=== PATIENT | male | born 1970 | race Caucasian/White ===

== ENCOUNTER 2020-01-04 11:40 | Inpatient (IN) | payer BC ==
[~2020-01-04] VITALS: Ht 165.1 cm; Wt 79.4 kg
[2020-01-04 12:12] VITALS: BP_SYST 109
[2020-01-04 13:12] LABS: HEMATOCRIT 41.5 % (36-54); HEMOGLOBIN 13.8 g/dL (14.0-18.0); MEAN CORPUSCULAR HEMOGLOBIN 34 pg (27-31); MEAN CORPUSCULAR HGB CONC 33 % (32-36); MEAN CORPUSCULAR VOLUME 102 fL (79.0-98.0); PLATELET COUNT (AUTO) 85 K/uL (130-430); RED BLOOD CELL COUNT(AUTO) 4.07 MIL/uL (4.2-6.2); RED CELL DISTRIBUTION WIDTH 18.6 % (9.0-15.0); WHITE BLOOD COUNT (AUTO) 5.3 K/uL (4.8-10.8)
[2020-01-04 13:34] LABS: CREATININE 0.93 mg/dL (0.55-1.30); POTASSIUM 3.9 mmol/L (3.5-5.1)
[2020-01-04 13:35] LABS: ATYPICAL LYMPHOCYTES % 0 % (0-0); BAND % (MANUAL) 3 % (0-6); BASOPHILS % (MANUAL) 0 % (0-2); EOSINOPHILS % (MANUAL) 0 % (0-7); LYMPHOCYTES % (MANUAL) 19 % (20-46); MONOCYTES % (MANUAL) 2 % (0-11)
[2020-01-04 13:40] LABS: ALBUMIN 3.3 g/dL (3.4-4.8); TOTAL BILIRUBIN 2.8 mg/dL (0.0-1.0)
--- NOTE | 2020-01-04 15:45 | NUR ---
Patient to ER bed 6 to gown for evaluation. Side rails up.
[2020-01-04] MEDS ORDERED: NACL 0.9% 1,000 ML IV ONE (15:54)
--- NOTE | 2020-01-04 15:55 | NUR ---
ER at bedside examining patient.
--- NOTE | 2020-01-04 15:56 | NUR ---
Patient presented to ER C/O vomiting. Patient A&Ox4, skin pink and warm, afebrile, ambulatory to ER, nausea & vomiting present, patient denies diarrhea, pain 5/10. Patient states he has flank pain and abdominal pain, Patient states he completed ABX for kidney infectiona and has pending gallbladder Sx. Patient states he also has "alcohol withdrawl" last drinl 0800 today.
[2020-01-04] MEDS ORDERED: ONDANSETRON HCL 4 MG/2 ML VIAL IVP ONE (16:00)
[2020-01-04] MEDS ORDERED: MORPHINE 2 MG/ML INJ. SYRINGE IVP ONE (16:00)
[2020-01-04] MEDS ORDERED: FOLIC ACID 1 MG, THIAMINE HCL 100 MG, MAGNESIUM SULFATE 1 GM, MVI 10 ML in NACL 0.9% 1,... IV ONE (16:00)
[2020-01-04] MEDS ORDERED: LORazepam 2 MG/ML VIAL IVP ONE (16:00)
[2020-01-04 16:23] LABS: AMYLASE 90 U/L (0-100); LIPASE 1007 U/L (73-393)
[2020-01-04 16:27] LABS: INR 1.2 (0.80-1.20); PROTHROMBIN TIME 11.6 SECS (9.5-12.5)
[2020-01-04] MEDS ORDERED: MAGNESIUM SULFATE IV ONE (16:35)
[2020-01-04] MEDS ORDERED: FOLIC ACID IV ONE (16:35)
[2020-01-04] MEDS ORDERED: NACL 0.9% IV ONE (16:35)
[2020-01-04] MEDS ORDERED: FOLIC ACID 1 MG, MVI 10 ML in NACL 0.9% 1,000 ML IV ONE (16:44)
[2020-01-04] MEDS ORDERED: MAGNESIUM SULFATE 1 GM, THIAMINE HCL 100 MG in NS 100 ML IV ONE (16:45)
[2020-01-04 17:34] LABS: BILIRUBIN,URINE 2+ (NEGATIVE); CLARITY/URINE CLEAR (CLEAR); COLOR,URINE YELLOW (YELLOW); GLUCOSE,URINE NEGATIVE (NEGATIVE); KETONES,URINE TRACE (NEGATIVE); LEUKOCYTE ESTERASE ,URINE NEGATIVE (NEGATIVE); NITRITE, URINE NEGATIVE (NEGATIVE); PROTEIN URINE 1+ (NEGATIVE)
[2020-01-04 17:48] LABS: BLOOD, URINE TRACE (NEGATIVE)
[2020-01-04 17:56] LABS: RBC,URINE 0-3 /HPF (0-3); WBC,URINE 0-3 /HPF (0-3)
[2020-01-04 17:57] LABS: BACTERIA,URINE FEW /HPF (None Seen)
[2020-01-04 17:58] LABS: MUCUS,URINE 1+ /LPF (None Seen)
--- NOTE | 2020-01-04 18:00 | NUR ---
BED ASSIGNMENT 104A PER STEM SETTER ZENNIE, HOLD PT IN ER
--- NOTE | 2020-01-04 19:17 | NUR ---
Patient will be admitted to care of DR. WINSLOW. Admitted to MEDSURG unit. Will go to room 104A. Belongings list completed. Complete and up to date summary report printed. SBAR report to be given at bedside with opportunity for questions.
[2020-01-04] MEDS ORDERED: ONDANSETRON HCL 4 MG/2 ML VIAL IVP PRN (19:45)
[2020-01-04] MEDS ORDERED: METOCLOPRAMIDE HCL 10 MG/2 ML VIAL IVP PRN (19:45)
[2020-01-04] MEDS ORDERED: MORPHINE 2 MG/ML INJ. SYRINGE IVP PRN (19:45)
[2020-01-04] MEDS ORDERED: MORPHINE 4 MG/ML INJ. SYRINGE IVP PRN (19:45)
--- NOTE | 2020-01-04 19:47 | NUR ---
ADMISSION NOTE Received patient from ER via kevin, received report from JAYJAY Osuna. Patient admitted with diagnosis of Delirium tremens. Patient oriented to hospital routine, call light, toileting and safety; patient verbalized understanding.
[2020-01-04 20:06] VITALS: BP_SYST 138
--- NOTE | 2020-01-04 20:35 | NUR ---
Ultrasound lead slot technician at bedside for ultrasound study
--- NOTE | 2020-01-04 20:40 | NUR ---
Assessment Assessment complete
[2020-01-04] MEDS ORDERED: FLU VACC QS2019-20 36MOS UP/PF 60 MCG/0.5 ML SYRINGE I.M. PRN (20:45)
[2020-01-04] MEDS ORDERED: FLU VACC TS2019(65UP)/MF59C/PF 45 MCG/0.5 ML SYRINGE I.M. PRN (20:45)
--- NOTE | 2020-01-04 22:20 | NUR ---
RN rounds Patient is resting w/ eyes closed. Nonlabored breathing. Call light w/in reach.
[2020-01-04 22:23] LABS: FINE GRANULAR CASTS,URINE 0-10 /LPF (None Seen)
--- NOTE | 2020-01-05 00:07 | NUR ---
RN rounds Patient is resting, presently denies pain. He has no further needs and requested lights off. Call light w/in reach.
[2020-01-05 00:08] VITALS: BP_SYST 135
[2020-01-05] MEDS: LORazepam 2 MG/ML VIAL IVP PRN ×2 (03:09→08:13)
--- NOTE | 2020-01-05 03:12 | NUR ---
Ativan Patient reports he is shaky. Administered Ativan as ordered; edcated on side effects and he verbalized understanding.
--- NOTE | 2020-01-05 05:15 | NUR ---
awake Patient is awake and asking if he can have a drink of water. I reminded him that the doctor ordered no food by mouth. Charge nurse aware.
[2020-01-05 07:05] LABS: INR 1.1 (0.80-1.20); PROTHROMBIN TIME 10.9 SECS (9.5-12.5)
[2020-01-05 07:08] LABS: BASOPHILS % (AUTO) 1.2 % (0.0-2.0); HEMATOCRIT 35.1 % (36-54); HEMOGLOBIN 11.5 g/dL (14.0-18.0); LYMPHOCYTES # (AUTO) 0.9 K/uL (1.0-5.5); LYMPHOCYTES % (AUTO) 21.4 % (20.5-51.5); MEAN CORPUSCULAR HEMOGLOBIN 34 pg (27-31); MEAN CORPUSCULAR HGB CONC 33 % (32-36); MEAN CORPUSCULAR VOLUME 104 fL (79.0-98.0); MONOCYTES # (AUTO) 0.3 K/uL (0.0-1.0); MONOCYTES % (AUTO) 8.4 % (1.7-9.3); NEUTROPHILS # (AUTO) 2.8 K/uL (1.8-7.7); PLATELET COUNT (AUTO) 69 K/uL (130-430); RED BLOOD CELL COUNT(AUTO) 3.38 MIL/uL (4.2-6.2); RED CELL DISTRIBUTION WIDTH 17.5 % (9.0-15.0)
--- NOTE | 2020-01-05 07:30 | NUR ---
closing note Endorsed report to JAYJAY Hernandez. Patient stable
[2020-01-05 08:00] VITALS: BP_SYST 149
[2020-01-05 08:42] LABS: ALBUMIN 2.7 g/dL (3.4-4.8); CALCIUM 7.1 mg/dL (8.4-11.0); CREATININE 0.73 mg/dL (0.55-1.30); POTASSIUM 3.4 mmol/L (3.5-5.1); TOTAL BILIRUBIN 3.6 mg/dL (0.0-1.0)
[2020-01-05] MEDS: NACL IV SCH ×3 (09:19)
[2020-01-05] MEDS: MVI IV SCH ×3 (09:19)
[2020-01-05] MEDS: FOLIC ACID IV SCH ×3 (09:19)
[2020-01-05] MEDS: BANANA IV SCH ×3 (09:19)
[2020-01-05] MEDS: MAGNESIUM SULFATE 1 GM, THIAMINE HCL 100 MG in NS 100 ML IV SCH (09:20)
--- NOTE | 2020-01-05 09:43 | NUR ---
CONSULT GI ABDOMINAL PAIN DR LUIS [phone] DR LIU CATALOG LIBRARY ASSISTANT S/W NAYE EXCHANGE
--- NOTE | 2020-01-05 11:20 | NUR ---
Patient doing well, being taken to radiology for ultrasound. Rowena RO
[2020-01-05 11:37] VITALS: BP_SYST 134
[2020-01-05 15:07] VITALS: BP_SYST 136
[2020-01-05 16:46] VITALS: BP_SYST 149
[2020-01-05] MEDS ORDERED: DIATR MEGLU/DIATRIZ SOD 30 ML SOLUTION PO ONE (17:00)
--- NOTE | 2020-01-05 19:10 | NUR ---
OPENING NOTES Patient is resting, in wheelchair about to go to radiology. IV site patent, dressings c/d/i. Seizure pads in place. Oriented patient to call light and plan of care. Will continue to monitor.
[2020-01-05 19:15] VITALS: BP_SYST 145
[2020-01-05] MEDS ORDERED: IOHEXOL 100 ML IV ONE (19:25)
--- NOTE | 2020-01-05 20:30 | NUR ---
Patient is resting in bed, Jello is provided. Patient has no signs of nausea or pain. Bed alarm refused after patient education provided and patient understanding. Call light within reach, bed alarm off, bed at lowest position. Will continue to monitor.
--- NOTE | 2020-01-06 00:15 | NUR ---
Patient is resting, no signs of distress observed. Seizure pads in place. Will continue to monitor.
[2020-01-06 01:01] VITALS: BP_SYST 153
--- NOTE | 2020-01-06 02:11 | NUR ---
Patient is resting, television on. Patient provided 2 jellos, HOB elevated. no nausea at this time. Will continue to monitor.
--- NOTE | 2020-01-06 04:43 | NUR ---
Patient is resting, no signs of distress observed. will continue to monitor.
--- NOTE | 2020-01-06 07:07 | NUR ---
CLOSING NOTES Patient is resting, no signs of distress observed, no nausea and patient tolerated ice chips and jello well. IVF running, dressings c/d/i. Call light within reach, bed alarm off after patient education and understanding, bed at lowest position. All needs met throughout shift. Will endorse care to oncoming shift.
[2020-01-06 07:34] LABS: CALCIUM 7.9 mg/dL (8.4-11.0); CREATININE 0.75 mg/dL (0.55-1.30); POTASSIUM 3.1 mmol/L (3.5-5.1)
[2020-01-06 07:35] LABS: ALBUMIN 2.7 g/dL (3.4-4.8); BILIRUBIN,DIRECT 2.9 mg/dL (0.0-0.3); TOTAL BILIRUBIN 4.2 mg/dL (0.0-1.0)
[2020-01-06 07:41] LABS: INR 1.1 (0.80-1.20); PROTHROMBIN TIME 10.8 SECS (9.5-12.5)
[2020-01-06 08:02] LABS: EOSINOPHILS % (AUTO) 0.5 % (0.0-4.0); HEMOGLOBIN 10.8 g/dL (14.0-18.0); LYMPHOCYTES # (AUTO) 0.8 K/uL (1.0-5.5); LYMPHOCYTES % (AUTO) 21.4 % (20.5-51.5); MEAN CORPUSCULAR HEMOGLOBIN 35 pg (27-31); MEAN CORPUSCULAR HGB CONC 34 % (32-36); MEAN CORPUSCULAR VOLUME 103 fL (79.0-98.0); MONOCYTES # (AUTO) 0.4 K/uL (0.0-1.0); NEUTROPHILS # (AUTO) 2.6 K/uL (1.8-7.7); NEUTROPHILS % (AUTO) 68.1 % (40.0-70.0); RED BLOOD CELL COUNT(AUTO) 3.12 MIL/uL (4.2-6.2); RED CELL DISTRIBUTION WIDTH 17.1 % (9.0-15.0); WHITE BLOOD COUNT (AUTO) 3.9 K/uL (4.8-10.8)
--- NOTE | 2020-01-06 08:49 | NUR ---
Nutrition Update Alex Scale 17 noted. Pt admitted for delirium tremens. Diet: clear liquid BMI: 29.1 kg/m2 RD to follow per nutrition care standards.
[2020-01-06] MEDS ORDERED: POTASSIUM CHLORIDE 20 MEQ TAB.PRT.SR PO SCH (09:30)
[2020-01-06] MEDS: MAGNESIUM SULFATE 1 GM, THIAMINE HCL 100 MG in NS 100 ML IV SCH (10:32)
[2020-01-06] MEDS: NACL IV SCH ×3 (10:33)
[2020-01-06] MEDS: BANANA IV SCH ×3 (10:33)
[2020-01-06] MEDS: FOLIC ACID IV SCH ×3 (10:33)
[2020-01-06] MEDS: MVI IV SCH ×3 (10:33)
[2020-01-06 11:26] VITALS: BP_SYST 121
[2020-01-06] MEDS: POTASSIUM CHLORIDE 20 MEQ TAB.PRT.SR PO SCH ×2 (11:47→14:00)
[2020-01-06 12:46] LABS: PLATELET COUNT (AUTO) 68 K/uL (130-430)
--- NOTE | 2020-01-06 13:55 | NUR ---
SS NOTES: SALES STOCK ASSOCIATE was referred by nursing to see patient for ETOH/DCPA. SALES STOCK ASSOCIATE met with patient at bedside; pt was cooperative with normal mood/speech and average eye contact. Pt is alert and oriented x4 with appropriate affect. Pt is a 49 y/o male, , who lives at home with his mom and his aunt. Pt is independent with all his ADL's and works part time receptionist in sales. Pt's only source of income is his employer. Pt states he has been drinking since he was 12 years old. Pt's alcohol of choice is vodka, and drinks around 300 ML daily. Pt denies any current drug use but has used drugs 20 years ago. Pt states he has history of detox in the past, last detox was 8-10 months ago at [facility]. Pt states he finished his detox and went to outpt "for a week" and pt stayed sober for a "couple of months" and decided to drink again with no apparent trigger/s. Pt states 3 years ago he also had alcohol treatments at [facility] and was there for 20 days. Pt was at one point connected with AA, but states "it wasn't my thing". Pt states he is depressed, but denies suicidal ideation/attempts. Pt states he sees a therapist 1x/week with Barb Carrizales. Pt states he receives support from his current girlfriend, mom and his sister. Pt states his relationship with his soon to be ex- was strained due to alcohol use. Pt denies any history of DUI or run in with the law. Pt expressed the desire to stop, especially now that he knows there "a lot of things wrong" with him due to his alcohol intake. SALES STOCK ASSOCIATE re-educated pt on the importance of staying sober, and healthy detox. SALES STOCK ASSOCIATE provided pt with outpatient mental health and substance abuse facilities list. No further SW needs identified at this time, but will remain available for continued support and for resources.
[2020-01-06 15:08] VITALS: BP_SYST 119
--- NOTE | 2020-01-06 15:10 | NUR ---
Nutrition Assessment (short note d/t high patient load) A - RD reviewed pertinent nutrition-related info via EMR (physician notes/nursing notes/labs/meds/nursing care trends/care activity). Admission Dx: Delirium tremens Pt also found w/ alcoholic hepatitis, chronic pain, alcohol-induced pancreatitis per physician notes PMH: chronic back pain, alcohol abuse per physician notes Current Diet Order/Nutrition Support: Mechanical soft x0 days Ht: 65"/5'5" Wt: 174#/79 kg IBW: 136#/62 kg %IBW: 127% Adj IBW (obesity): 146#/66 kg UBW: 190#/86 kg %UBW: 92% BMI: 29.1 kg/m2 (overweight) Subjective Info: RD Notification received for unintentional wt loss in the last 3 months (23-33#), eating poorly greater than 1 week because of creased appetite, N/V/D greater than 3 days CROSSTIE INSPECTOR. Pt was seen in room at time of RD visit. wine cellar worker present during RD verbal interview. Pt reported fair appetite -- lunch tray present, appeared less than 75% eaten. Pt attested to VIT C, MVI, super B complex, VIT A, VIT C, niacin, and fish oil supplementation. Pt reported that he lost ~20# within the past months after being sick w/ the flu. Anthropometrics verified. Pt accepted nutrition education when offered -- RD to provide. Please refer to interdisciplinary teaching record for details. ESTIMATED NUTRITIONAL NEEDS CALORIES/DAY: 9798-9492 kcal/day (25-30 kcal/kg Adj IBW for maintenance) PROTEIN/DAY: 53-66 gm/day (0.8-1 gm/kg Adj IBW for maintenance) FLUID/DAY: 1.7-2 L/day (1 ml/kcal/day for maintenance) D - Inadequate nutritional intakes related to possible displacement of wholesome foods as evidenced by pt's Hx of alcohol abuse, and poor appetite CROSSTIE INSPECTOR. I - Recommend regular diet w/ Ensure Enlive BID (ONS provides 700 kcal/day, 40 gm protein/day) M - Monitor appetite and PO intakes w/ goal of pt meeting at least 75% of estimated nutritional needs, labs trending WNL, normal GI function, and skin integrity/wt maintenance E - Moderate risk; RD to F/U within 3-5 days
--- NOTE | 2020-01-06 15:19 | NUR ---
Nutrition F/U * Recommend regular diet w/ Ensure Enlive BID (ONS provides 700 kcal/day, 40 gm protein/day) LP, RD Please refer to Nutrition Assessment for details.
--- NOTE | 2020-01-06 19:30 | NUR ---
CHANGE OF SHIFT; pt. sleeping when received, has not eaten his dinner. no distress noted. call light within reach. will reassess later.
[2020-01-06 20:30] VITALS: BP_SYST 128
--- NOTE | 2020-01-06 20:30 | NUR ---
NOTES: pt. awakened and ate his dinner, no complaints of pain, tolerated diet.. IV (banana bag) infusing via left wrist @ 100 cc/hr, increase rate to 249cc/hr per pharmacy. pt. ambulates to the restroom. VS checked. call light at bedside.
--- NOTE | 2020-01-06 22:00 | NUR ---
NOTES: IVF completed,no IVF alternative ordered. kept IV lock. pt. ambulated to restroom. call light at bedside. pt. needs attended.
--- NOTE | 2020-01-07 | NUR ---
NOTES: pt. still awake, watching tv. no complaints noted.
--- NOTE | 2020-01-07 02:41 | NUR ---
NOTES: pt. sleeping when checked. condition observed.
[2020-01-07 03:30] VITALS: BP_SYST 115
--- NOTE | 2020-01-07 03:33 | NUR ---
NOTES: pt. called, he was nauseated and vomited per charge nurse Obed. checked pt. apparently drank the water in the pitcher, not nauseous anymore, instructed to call if he gets nauseated in the next hour. VS checked.
--- NOTE | 2020-01-07 05:42 | NUR ---
NOTES: pt. sleeping at this time. no further complaints, no nausea nor vomiting.
--- NOTE | 2020-01-07 06:34 | NUR ---
CLOSING NOTES; pt. still asleep, no further complaints, no nausea nor vomiting. IV site intact, IV lock. no abdominal pain. for further care and assist. call light within reach.
[2020-01-07 07:47] VITALS: BP_SYST 131
--- NOTE | 2020-01-07 08:00 | NUR ---
OPENING NOTES, RECEIVED PT IN BED, PT IS AAOX4, DENIES PAIN, PT LAST HAVE N/V AT 3 AM, NO SOB, NO RESP DISTRESS. NO FEVER. IV ACCESS INTACT AND PATENT. CALL LIGHT IN REACH. BED IN LOW POSITION. ENCOURAGED PT TO CALL FOR ASSIST AND PAIN MEDS.
--- NOTE | 2020-01-07 10:30 | NUR ---
pt in bed, sleeping, no s/s of pain. no sob.
[2020-01-07 11:10] VITALS: BP_SYST 116
[2020-01-07 12:10] VITALS: BP_SYST 116
--- NOTE | 2020-01-07 13:00 | NUR ---
PT REFUSED FLU VACCINE.
--- NOTE | 2020-01-07 13:30 | NUR ---
D/C Patient Patient given medication reconciliation form and D/C instructions. Exit Care provided. Patient verbalized understanding. MD discussed with patient the results and treatment provided. Ambulatory with steady gait for discharge to home. Patient in stable condition, ID band removed. IV catheter removed, intact and dressing applied, no active bleeding. No Rx given. Patient educated on pain management. All belongings sent with patient. discussed with pt dc instruction regarding Alholic hepatitis and doctor's recomendation on stopping alcohol intake and joining AA. Pt verbalized understanding. Pt provided with work excuse.
== END 2020-01-07 13:30 | disposition home or self-care (01) | DRG 440 ==
LOC: SED 11:40 → SMU 17:57
PROVIDERS: ADMIT Internal Medicine Hospice and Palliative Medicine; ATTEND Internal Medicine Hospice and Palliative Medicine
DX: K85.90 Acute pancreatitis without necrosis or infection, unspecified (principal); G89.29 Other chronic pain; F10.10 Alcohol abuse, uncomplicated; K70.10 Alcoholic hepatitis without ascites; Z90.49 Acquired absence of other specified parts of digestive tract; Z79.899 Other long term (current) drug therapy
CPT/HCPCS: 36415; 76700-TC; 78226; 80053; 80076; 81000-TC; 82150-TC; 83690-TC; 85007; 85025; 85027; 85610-TC; 85730-TC; 96361; 96365; 96368; 96375; 99285; A9537; J2060; J2270; J2405; J3411; J3475; J3490; J7030; Q9964; Q9967

== ENCOUNTER 2020-03-24 11:08 | Emergency (ER) | payer BC ==
[~2020-03-24] VITALS: Ht 165.1 cm; Wt 81.6 kg
[2020-03-24 11:08] VITALS: BP_SYST 137
[2020-03-24 11:54] LABS: BASOPHILS # (AUTO) 0.1 K/uL (0.0-0.2); BASOPHILS % (AUTO) 1.3 % (0.0-2.0); EOSINOPHILS % (AUTO) 0.3 % (0.0-4.0); HEMATOCRIT 46.2 % (36-54); HEMOGLOBIN 15.6 g/dL (14.0-18.0); LYMPHOCYTES # (AUTO) 2.4 K/uL (1.0-5.5); LYMPHOCYTES % (AUTO) 48.3 % (20.5-51.5); MEAN CORPUSCULAR HEMOGLOBIN 33 pg (27-31); MEAN CORPUSCULAR HGB CONC 34 % (32-36); MEAN CORPUSCULAR VOLUME 97 fL (79.0-98.0); MONOCYTES # (AUTO) 0.6 K/uL (0.0-1.0); MONOCYTES % (AUTO) 11.5 % (1.7-9.3); NEUTROPHILS % (AUTO) 38.6 % (40.0-70.0); PLATELET COUNT (AUTO) 84 K/uL (130-430); RED BLOOD CELL COUNT(AUTO) 4.75 MIL/uL (4.2-6.2); RED CELL DISTRIBUTION WIDTH 13.9 % (9.0-15.0); WHITE BLOOD COUNT (AUTO) 5.1 K/uL (4.8-10.8)
[2020-03-24 12:40] LABS: POTASSIUM 3.6 mmol/L (3.5-5.1)
[2020-03-24 12:41] LABS: ALBUMIN 4.7 g/dL (3.4-4.8); CREATININE 0.8 mg/dL (0.55-1.30)
[2020-03-24 15:56] VITALS: BP_SYST 145
== END 2020-03-24 15:56 | disposition home or self-care (01) ==
LOC: SED 11:08
DX: R07.89 Other chest pain (principal); F10.129 Alcohol abuse with intoxication, unspecified; Y90.8 Blood alcohol level of 240 mg/100 ml or more
CPT/HCPCS: 36415; 71045; 80053; 82550; 83690; 83880; 84484; 85025; 93005; 99285; G0482

== ENCOUNTER 2020-04-04 00:37 | Inpatient (IN) | payer BC, MEDICAID ==
[~2020-04-04] VITALS: Ht 165.1 cm; Wt 84.8 kg
[2020-04-04] VITALS (7 sets, daily range): BP systolic 115–138
[2020-04-04] MEDS ORDERED: PANTOPRAZOLE SODIUM 40 MG/VIAL (PROTONIX) IVP ONE ×2 (01:15→10:15)
[2020-04-04] MEDS ORDERED: ONDANSETRON HCL 4 MG/2 ML VIAL IVP ONE (01:15)
[2020-04-04] MEDS ORDERED: FOLIC ACID 1 MG, THIAMINE HCL 100 MG, MAGNESIUM SULFATE 1 GM, MVI 10 ML in NACL 0.9% 1,... IV ONE (01:15)
[2020-04-04] MEDS ORDERED: IOHEXOL 100 ML IV ONE (01:55)
[2020-04-04 01:56] LABS: BASOPHILS # (AUTO) 0.1 K/uL (0.0-0.2); BASOPHILS % (AUTO) 2.9 % (0.0-2.0); EOSINOPHILS % (AUTO) 0.3 % (0.0-4.0); HEMATOCRIT 43.2 % (36-54); HEMOGLOBIN 14.7 g/dL (14.0-18.0); LYMPHOCYTES # (AUTO) 1.3 K/uL (1.0-5.5); LYMPHOCYTES % (AUTO) 51.4 % (20.5-51.5); MEAN CORPUSCULAR HEMOGLOBIN 33 pg (27-31); MEAN CORPUSCULAR HGB CONC 34 % (32-36); MEAN CORPUSCULAR VOLUME 96 fL (79.0-98.0); MONOCYTES # (AUTO) 0.4 K/uL (0.0-1.0); MONOCYTES % (AUTO) 15.3 % (1.7-9.3); PLATELET COUNT (AUTO) 84 K/uL (130-430); RED BLOOD CELL COUNT(AUTO) 4.53 MIL/uL (4.2-6.2); RED CELL DISTRIBUTION WIDTH 14.6 % (9.0-15.0); WHITE BLOOD COUNT (AUTO) 2.5 K/uL (4.8-10.8)
[2020-04-04] MEDS ORDERED: THIAMINE HCL 100 MG/ML VIAL ONE (01:57)
[2020-04-04] MEDS ORDERED: MAGNESIUM SULFATE 1 GM/2 ML VIAL ONE (01:57)
[2020-04-04] MEDS ORDERED: MVI 10 ML VIAL IV ONE (01:57)
[2020-04-04] MEDS ORDERED: FOLIC ACID 5 MG/ML VIAL IV ONE (01:57)
[2020-04-04 02:02] LABS: ANION GAP 15 (5-15); CALCIUM 8.8 mg/dL (8.4-11.0); CHLORIDE 97 mmol/L (98-107); CREATININE 0.84 mg/dL (0.55-1.30); GLUCOSE 101 mg/dL (70-99); POTASSIUM 3.6 mmol/L (3.5-5.1); SODIUM SERUM 138 mmol/L (136-145); UREA NITROGEN, BLOOD 4 mg/dL (8-21)
[2020-04-04 02:07] LABS: GFR AFRICAN AMERICAN 124 mL/min (>90); PROTHROMBIN TIME 10.3 SECS (9.5-12.5)
[2020-04-04 02:09] LABS: ALANINE AMINOTRANSFERASE 243 U/L (12-78); ALBUMIN 4.4 g/dL (3.4-4.8); ASPARTATE AMINOTRANSFERASE 440 U/L (10-37); LIPASE 214 U/L (73-393); TOTAL BILIRUBIN 1.1 mg/dL (0.0-1.0)
[2020-04-04 02:11] LABS: ACETAMINOPHEN < 1 ug/mL (1-30)
[2020-04-04 02:13] LABS: NEUTROPHILS # (AUTO) 0.8 K/uL (1.8-7.7)
[2020-04-04 04:05] LABS: NEUTROPHILS % (AUTO) 30.1 % (40.0-70.0)
[2020-04-04] MEDS ORDERED: ACETAMINOPHEN 325 MG TABLET PO PRN (05:45)
[2020-04-04] MEDS ORDERED: ALBUTEROL SULFATE 0.083% 2.5 MG/3 ML VIAL.NEB INH PRN (05:45)
[2020-04-04] MEDS ORDERED: LORazepam 2 MG/ML VIAL IVP PRN ×2 (05:45→13:15)
[2020-04-04] MEDS ORDERED: MORPHINE SULFATE 10 MG/ML VIAL IVP PRN (05:45)
[2020-04-04 06:18] LABS: ALCOHOL, BLOOD 455 mg/dL (<10)
[2020-04-04] MEDS: CITALOPRAM HYDROBROMIDE 20 MG TABLET PO SCH (08:27)
[2020-04-04] MEDS: cefTRIAXone 1 GM IVPB PREMIX 50 ML IV SCH (08:50)
[2020-04-04] MEDS ORDERED: PANTOPRAZOLE SODIUM 40 MG/VIAL (PROTONIX) IVP SCH (09:00)
[2020-04-04 09:10] LABS: BASOPHILS # (AUTO) 0.1 K/uL (0.0-0.2); BASOPHILS % (AUTO) 2.1 % (0.0-2.0); EOSINOPHILS % (AUTO) 0.6 % (0.0-4.0); HEMATOCRIT 40.9 % (36-54); HEMOGLOBIN 13.7 g/dL (14.0-18.0); LYMPHOCYTES # (AUTO) 1.6 K/uL (1.0-5.5); LYMPHOCYTES % (AUTO) 60.5 % (20.5-51.5); MEAN CORPUSCULAR HEMOGLOBIN 32 pg (27-31); MEAN CORPUSCULAR HGB CONC 34 % (32-36); MEAN CORPUSCULAR VOLUME 95 fL (79.0-98.0); MONOCYTES # (AUTO) 0.4 K/uL (0.0-1.0); MONOCYTES % (AUTO) 14.1 % (1.7-9.3); NEUTROPHILS % (AUTO) 22.7 % (40.0-70.0); PLATELET COUNT (AUTO) 73 K/uL (130-430); RED BLOOD CELL COUNT(AUTO) 4.31 MIL/uL (4.2-6.2); RED CELL DISTRIBUTION WIDTH 14.6 % (9.0-15.0); WHITE BLOOD COUNT (AUTO) 2.6 K/uL (4.8-10.8)
[2020-04-04 09:15] LABS: NEUTROPHILS # (AUTO) 0.6 K/uL (1.8-7.7)
[2020-04-04 09:31] LABS: CREATININE 0.82 mg/dL (0.55-1.30); POTASSIUM 3.7 mmol/L (3.5-5.1)
[2020-04-04 09:33] LABS: ALBUMIN 3.9 g/dL (3.4-4.8); PHOSPHORUS 3.9 mg/dL (2.7-4.5)
[2020-04-04] MEDS: ONDANSETRON HCL 4 MG/2 ML VIAL IVP PRN (10:27)
[2020-04-04] MEDS: NACL 0.9% 1,000 ML IV SCH ×3 (11:31→18:41)
[2020-04-04] MEDS: chlordiazePOXIDE HCL 25 MG CAPSULE PO SCH ×2 (13:21→20:16)
[2020-04-04] MEDS ORDERED: chlordiazePOXIDE HCL 25 MG CAPSULE PO SCH (15:00)
[2020-04-04] MEDS: LORazepam 2 MG/ML VIAL IVP PRN ×2 (17:18→20:16)
[2020-04-04] MEDS ORDERED: MULTIVITAMINS TAB 1 TABLET PO ONE (18:00)
[2020-04-04] MEDS ORDERED: FOLIC ACID 1 MG TABLET PO ONE (18:00)
[2020-04-04] MEDS ORDERED: THIAMINE HCL 100 MG TABLET PO ONE (18:00)
[2020-04-04 18:13] LABS: HEMATOCRIT 36.9 % (36-54); HEMOGLOBIN 12.2 g/dL (14.0-18.0)
[2020-04-04] MEDS: PANTOPRAZOLE SODIUM 40 MG/VIAL (PROTONIX) IVP SCH (20:16)
[2020-04-05] MEDS: LORazepam 2 MG/ML VIAL IVP PRN ×4 (00:04→23:37)
[2020-04-05 00:19] VITALS: BP_SYST 124
[2020-04-05 03:27] LABS: HEMATOCRIT 35.5 % (36-54); HEMOGLOBIN 11.9 g/dL (14.0-18.0); MEAN CORPUSCULAR HEMOGLOBIN 32 pg (27-31); MEAN CORPUSCULAR HGB CONC 34 % (32-36); MEAN CORPUSCULAR VOLUME 96 fL (79.0-98.0); PLATELET COUNT (AUTO) 59 K/uL (130-430); RED BLOOD CELL COUNT(AUTO) 3.71 MIL/uL (4.2-6.2); RED CELL DISTRIBUTION WIDTH 14.4 % (9.0-15.0); WHITE BLOOD COUNT (AUTO) 3.3 K/uL (4.8-10.8)
[2020-04-05] MEDS: NACL 0.9% 1,000 ML IV SCH ×3 (03:32→16:20)
[2020-04-05 03:40] LABS: ALBUMIN 3.5 g/dL (3.4-4.8); CALCIUM 7.8 mg/dL (8.4-11.0); CREATININE 0.71 mg/dL (0.55-1.30); POTASSIUM 3.4 mmol/L (3.5-5.1); TOTAL BILIRUBIN 1.4 mg/dL (0.0-1.0)
[2020-04-05 04:48] LABS: BAND % (MANUAL) 3 % (0-6); BASOPHILS % (MANUAL) 0 % (0-2); EOSINOPHILS % (MANUAL) 0 % (0-7); LYMPHOCYTES % (MANUAL) 23 % (20-46); MONOCYTES % (MANUAL) 9 % (0-11)
[2020-04-05] MEDS: PANTOPRAZOLE SODIUM 40 MG/VIAL (PROTONIX) IVP SCH ×2 (08:02→20:04)
[2020-04-05] MEDS: cefTRIAXone 1 GM IVPB PREMIX 50 ML IV SCH (08:02)
[2020-04-05] MEDS: FOLIC ACID 1 MG TABLET PO SCH (08:03)
[2020-04-05] MEDS: chlordiazePOXIDE HCL 25 MG CAPSULE PO SCH ×3 (08:03→20:04)
[2020-04-05] MEDS: MULTIVITAMINS TAB 1 TABLET PO SCH (08:03)
[2020-04-05] MEDS: CITALOPRAM HYDROBROMIDE 20 MG TABLET PO SCH (08:03)
[2020-04-05] MEDS: THIAMINE HCL 100 MG TABLET PO SCH (08:03)
[2020-04-05 08:05] VITALS: BP_SYST 125
[2020-04-05 10:28] LABS: HEMATOCRIT 36.7 % (36-54); HEMOGLOBIN 12.4 g/dL (14.0-18.0)
[2020-04-05 12:01] VITALS: BP_SYST 112
[2020-04-05] MEDS: ONDANSETRON HCL 4 MG/2 ML VIAL IVP PRN ×2 (14:14→20:03)
[2020-04-05 16:09] VITALS: BP_SYST 125
[2020-04-05 18:10] LABS: HEMATOCRIT 37.6 % (36-54); HEMOGLOBIN 12.6 g/dL (14.0-18.0)
[2020-04-05] MEDS ORDERED: POTASSIUM CHLORIDE 20 MEQ TAB.PRT.SR PO ONE (19:00)
[2020-04-05 20:00] VITALS: BP_SYST 116
[2020-04-05] MEDS: MUPIROCIN 2% TOPICAL OINTMENT 22 GM NS SCH (20:03)
[2020-04-05] MEDS ORDERED: MUPIROCIN 2% TOPICAL OINTMENT 22 GM NS SCH (21:00)
[2020-04-06] VITALS: BP_SYST 135
[2020-04-06 02:49] LABS: HEMATOCRIT 36.3 % (36-54); HEMOGLOBIN 12.4 g/dL (14.0-18.0)
[2020-04-06] MEDS: NACL 0.9% 1,000 ML IV SCH ×4 (04:13→16:45)
[2020-04-06 08:00] VITALS: BP_SYST 137
[2020-04-06] MEDS: cefTRIAXone 1 GM IVPB PREMIX 50 ML IV SCH (08:38)
[2020-04-06] MEDS: MULTIVITAMINS TAB 1 TABLET PO SCH (08:39)
[2020-04-06] MEDS: THIAMINE HCL 100 MG TABLET PO SCH (08:39)
[2020-04-06] MEDS: chlordiazePOXIDE HCL 25 MG CAPSULE PO SCH ×3 (08:39→21:39)
[2020-04-06] MEDS: PANTOPRAZOLE SODIUM 40 MG/VIAL (PROTONIX) IVP SCH ×2 (08:39→21:38)
[2020-04-06] MEDS: FOLIC ACID 1 MG TABLET PO SCH (08:39)
[2020-04-06] MEDS: CITALOPRAM HYDROBROMIDE 20 MG TABLET PO SCH (08:39)
[2020-04-06] MEDS: MUPIROCIN 2% TOPICAL OINTMENT 22 GM NS SCH ×2 (08:39→21:39)
[2020-04-06 09:57] LABS: HEMATOCRIT 37.9 % (36-54); HEMOGLOBIN 12.7 g/dL (14.0-18.0)
[2020-04-06 12:19] VITALS: BP_SYST 129
[2020-04-06 16:54] VITALS: BP_SYST 139
[2020-04-06 18:17] LABS: HEMATOCRIT 42.1 % (36-54)
[2020-04-06 20:00] VITALS: BP_SYST 141
[2020-04-06] MEDS: LORazepam 2 MG/ML VIAL IVP PRN (22:02)
[2020-04-06 23:02] VITALS: BP_SYST 133
[2020-04-07] MEDS: NACL 0.9% 1,000 ML IV SCH ×4 (01:09→22:45)
[2020-04-07] MEDS: PANTOPRAZOLE SODIUM 40 MG/VIAL (PROTONIX) IVP SCH ×2 (08:43→20:50)
[2020-04-07] MEDS: chlordiazePOXIDE HCL 25 MG CAPSULE PO SCH (08:43)
[2020-04-07] MEDS: CITALOPRAM HYDROBROMIDE 20 MG TABLET PO SCH (08:44)
[2020-04-07] MEDS: THIAMINE HCL 100 MG TABLET PO SCH (08:44)
[2020-04-07] MEDS: FOLIC ACID 1 MG TABLET PO SCH (08:44)
[2020-04-07] MEDS: MUPIROCIN 2% TOPICAL OINTMENT 22 GM NS SCH ×2 (08:44→20:50)
[2020-04-07] MEDS: MULTIVITAMINS TAB 1 TABLET PO SCH (08:44)
[2020-04-07] MEDS: cefTRIAXone 1 GM IVPB PREMIX 50 ML IV SCH (08:44)
[2020-04-07] MEDS: LORazepam 2 MG/ML VIAL IVP PRN ×3 (08:56→21:09)
[2020-04-07 09:54] VITALS: BP_SYST 145
[2020-04-07 13:22] VITALS: BP_SYST 138
[2020-04-07 13:27] VITALS: BP_SYST 138
[2020-04-07] MEDS ORDERED: chlordiazePOXIDE HCL 25 MG CAPSULE PO SCH (15:00)
[2020-04-07] MEDS: chlordiazePOXIDE HCL 10 MG CAPSULE PO SCH ×2 (15:11→20:51)
[2020-04-07 18:00] VITALS: BP_SYST 129
[2020-04-07 20:00] VITALS: BP_SYST 137
[2020-04-08 00:37] VITALS: BP_SYST 151
[2020-04-08] MEDS: NACL 0.9% 1,000 ML IV SCH ×2 (05:40→09:07)
[2020-04-08 08:06] VITALS: BP_SYST 141
[2020-04-08] MEDS: PANTOPRAZOLE SODIUM 40 MG/VIAL (PROTONIX) IVP SCH (08:52)
[2020-04-08] MEDS: cefTRIAXone 1 GM IVPB PREMIX 50 ML IV SCH (08:52)
[2020-04-08] MEDS: THIAMINE HCL 100 MG TABLET PO SCH (08:53)
[2020-04-08] MEDS: LORazepam 2 MG/ML VIAL IVP PRN (08:53)
[2020-04-08] MEDS: MUPIROCIN 2% TOPICAL OINTMENT 22 GM NS SCH (08:53)
[2020-04-08] MEDS: FOLIC ACID 1 MG TABLET PO SCH (08:53)
[2020-04-08] MEDS: chlordiazePOXIDE HCL 10 MG CAPSULE PO SCH (08:53)
[2020-04-08] MEDS: CITALOPRAM HYDROBROMIDE 20 MG TABLET PO SCH (08:53)
[2020-04-08] MEDS: MULTIVITAMINS TAB 1 TABLET PO SCH (08:53)
[2020-04-08 10:36] LABS: CALCIUM 8.5 mg/dL (8.4-11.0); CREATININE 0.64 mg/dL (0.55-1.30); POTASSIUM 3.6 mmol/L (3.5-5.1)
[2020-04-08 10:41] LABS: ALBUMIN 3.2 g/dL (3.4-4.8); TOTAL BILIRUBIN 0.6 mg/dL (0.0-1.0)
[2020-04-08 11:26] VITALS: BP_SYST 141
[2020-04-08] MEDS ORDERED: chlordiazePOXIDE HCL 10 MG CAPSULE PO PRN (11:45)
[2020-04-08 12:00] VITALS: BP_SYST 131
== END 2020-04-08 12:15 | disposition home or self-care (01) | DRG 241 ==
LOC: SED 00:37 → STU 03:43
PROVIDERS: ADMIT Internal Medicine Hospice and Palliative Medicine; ATTEND Internal Medicine Hospice and Palliative Medicine
DX: K29.21 Alcoholic gastritis with bleeding (principal); D70.9 Neutropenia, unspecified; F33.2 Major depressive disorder, recurrent severe without psychotic features; D69.6 Thrombocytopenia, unspecified; R45.851 Suicidal ideations; K22.6 Gastro-esophageal laceration-hemorrhage syndrome; K20.9 Esophagitis, unspecified; Y90.8 Blood alcohol level of 240 mg/100 ml or more; F10.239 Alcohol dependence with withdrawal, unspecified; F17.200 Nicotine dependence, unspecified, uncomplicated; I10 Essential (primary) hypertension; F41.9 Anxiety disorder, unspecified; K74.60 Unspecified cirrhosis of liver; K70.10 Alcoholic hepatitis without ascites; T51.91XA Toxic effect of unspecified alcohol, accidental (unintentional), initial encounter; Y92.89 Other specified places as the place of occurrence of the external cause; Z71.41 Alcohol abuse counseling and surveillance of alcoholic
CPT/HCPCS: 36415; 71045; 80053; 83690-TC; 83735-TC; 84100-TC; 84484; 85007; 85018-TC; 85025; 85027; 85610-TC; 85730-TC; 87081; 93005; 96365; 96366; 96375; 99285; C9113; G0378; G0480; G0481; G0482; J0696; J2060; J2405; J3411; J3475; J3490; J7030; Q9967

== ENCOUNTER 2020-04-27 09:13 | Emergency (ER) | payer MEDICAID ==
[~2020-04-27] VITALS: Ht 172.7 cm; Wt 99.8 kg
[2020-04-27 09:13] VITALS: BP_SYST 134
--- NOTE | 2020-04-27 09:13 | NUR ---
Placed in room 2. Placed on school lunch monitor, blood pressure machine and pulse oximeter. To gown for exam. Side rails up. Report given to JAYJAY Rock.
--- NOTE | 2020-04-27 09:15 | NUR ---
pt arrives from home w/ c/o of CP x 3 days, 07/11, dull. Pt states that he has not been taking his anxiety and depression meds.
--- NOTE | 2020-04-27 09:18 | NUR ---
medicated the pt w/ Ativan po per MD order.
--- NOTE | 2020-04-27 09:27 | NUR ---
ER at bedside examining patient.
[2020-04-27] MEDS ORDERED: LORazepam 1 MG TABLET PO ONE (09:30)
--- NOTE | 2020-04-27 09:38 | NUR ---
Pt getting CXR done at the bedside
--- NOTE | 2020-04-27 09:59 | NUR ---
pt getting pabd drawn at the bedside
[2020-04-27 10:01] LABS: BASOPHILS % (AUTO) 0.7 % (0.0-2.0); HEMATOCRIT 44.4 % (36-54); HEMOGLOBIN 15.3 g/dL (14.0-18.0); LYMPHOCYTES # (AUTO) 2.7 K/uL (1.0-5.5); MEAN CORPUSCULAR HEMOGLOBIN 32 pg (27-31); MEAN CORPUSCULAR HGB CONC 34 % (32-36); MEAN CORPUSCULAR VOLUME 92 fL (79.0-98.0); MONOCYTES # (AUTO) 0.4 K/uL (0.0-1.0); MONOCYTES % (AUTO) 7.7 % (1.7-9.3); NEUTROPHILS # (AUTO) 1.8 K/uL (1.8-7.7); NEUTROPHILS % (AUTO) 36.6 % (40.0-70.0); PLATELET COUNT (AUTO) 166 K/uL (130-430); RED BLOOD CELL COUNT(AUTO) 4.82 MIL/uL (4.2-6.2); RED CELL DISTRIBUTION WIDTH 16.7 % (9.0-15.0)
[2020-04-27 10:09] LABS: CALCIUM 8.8 mg/dL (8.4-11.0); CREATININE 0.8 mg/dL (0.55-1.30); POTASSIUM 3.9 mmol/L (3.5-5.1)
[2020-04-27 10:16] LABS: ALBUMIN 4.3 g/dL (3.4-4.8); TOTAL BILIRUBIN 0.6 mg/dL (0.0-1.0)
[2020-04-27 11:00] VITALS: BP_SYST 124
--- NOTE | 2020-04-27 11:01 | NUR ---
Patient given written and verbal discharge instructions and verbalizes understanding. ER MD discussed with patient the results and treatment provided. Patient in stable condition. ID arm band removed. Rx of given. Patient educated on pain management and to follow up with PMD. Pain Scale 0/10. Opportunity for questions provided and answered. Medication side effect fact sheet provided.
== END 2020-04-27 11:01 | disposition home or self-care (01) ==
LOC: SED 09:13
DX: R07.89 Other chest pain (principal); F10.229 Alcohol dependence with intoxication, unspecified; Y90.8 Blood alcohol level of 240 mg/100 ml or more
CPT/HCPCS: 36415; 71045; 80053; 82550; 83690; 83880; 84484; 85025; 93005; 99285; G0482

== ENCOUNTER 2020-04-30 06:56 | Inpatient (IN) | payer MEDICAID ==
[~2020-04-30] VITALS: Ht 165.1 cm; Wt 78.5 kg
[2020-04-30 07:00] VITALS: BP_SYST 141
[2020-04-30] MEDS ORDERED: NACL 0.9% 1,000 ML IV ONE (07:57)
[2020-04-30] MEDS ORDERED: NITROGLYCERIN 0.4 MG TAB.SUBL SL ONE (08:00)
[2020-04-30] MEDS ORDERED: ASPIRIN 81 MG TAB.CHEW PO ONE (08:00)
[2020-04-30 08:45] LABS: HEMATOCRIT 43.1 % (36-54); HEMOGLOBIN 14.4 g/dL (14.0-18.0); MEAN CORPUSCULAR HEMOGLOBIN 31 pg (27-31); MEAN CORPUSCULAR HGB CONC 34 % (32-36); MEAN CORPUSCULAR VOLUME 93 fL (79.0-98.0); PLATELET COUNT (AUTO) 105 K/uL (130-430); RED BLOOD CELL COUNT(AUTO) 4.63 MIL/uL (4.2-6.2); WHITE BLOOD COUNT (AUTO) 2.5 K/uL (4.8-10.8)
[2020-04-30 09:02] LABS: INR 1.1 (0.80-1.20); PROTHROMBIN TIME 10.7 SECS (9.5-12.5)
[2020-04-30 09:04] LABS: CALCIUM 8.1 mg/dL (8.4-11.0); CREATININE 0.61 mg/dL (0.55-1.30); POTASSIUM 3.5 mmol/L (3.5-5.1)
[2020-04-30 09:10] LABS: ATYPICAL LYMPHOCYTES % 6 % (0-0); BAND % (MANUAL) 6 % (0-6); BASOPHILS % (MANUAL) 0 % (0-2); EOSINOPHILS % (MANUAL) 0 % (0-7); LYMPHOCYTES % (MANUAL) 26 % (20-46); MONOCYTES % (MANUAL) 0 % (0-11)
[2020-04-30] MEDS ORDERED: ASPIRIN 81 MG TAB.CHEW ONE (09:10)
[2020-04-30 09:14] LABS: ALBUMIN 4.1 g/dL (3.4-4.8); TOTAL BILIRUBIN 0.7 mg/dL (0.0-1.0)
[2020-04-30 09:32] LABS: BILIRUBIN,URINE NEGATIVE (NEGATIVE); BLOOD, URINE NEGATIVE (NEGATIVE); CLARITY/URINE CLEAR (CLEAR); COLOR,URINE YELLOW (YELLOW); GLUCOSE,URINE NEGATIVE (NEGATIVE); KETONES,URINE NEGATIVE (NEGATIVE); LEUKOCYTE ESTERASE ,URINE NEGATIVE (NEGATIVE); NITRITE, URINE NEGATIVE (NEGATIVE); PROTEIN URINE TRACE (NEGATIVE); UROBILINOGEN,URINE 0.2 (0.2-1.0)
[2020-04-30 09:38] LABS: BACTERIA,URINE RARE /HPF (None Seen); HYALINE CASTS, URINE 0-10 /LPF (None Seen); RBC,URINE 0-3 /HPF (0-3); WBC,URINE 0-3 /HPF (0-3)
[2020-04-30 09:44] LABS: BARBITURATE, URINE NEGATIVE (NEG <=200); BENZODIAZEPINE, URINE POSITIVE (NEG <=150); CANNABINOID, URINE NEGATIVE (NEG <=50); COCAINE, URINE NEGATIVE (NEG <=150); METHAMPHETAMINES SCREEN,URINE NEGATIVE (NEG <=500); OPIATE, URINE NEGATIVE (NEG <=100); PHENCYCLIDINE SCREEN,URINE NEGATIVE (NEG <=25); UR TRICYCLIC ANTIDEPRESSANTS NEGATIVE (NEG <=300); URINE AMPHETAMINE NEGATIVE (NEG <=500); URINE METHADONE NEGATIVE (NEG <=200); URINE OXYCODONE SCREEN NEGATIVE (NEG <=100); URINE PROPOXYPHENE SCREEN NEGATIVE (NEG <=300)
[2020-04-30] MEDS ORDERED: FOLIC ACID 1 MG, THIAMINE HCL 100 MG, MAGNESIUM SULFATE 1 GM, MVI 10 ML in NACL 0.9% 1,... IV ONE (10:15)
[2020-04-30] MEDS ORDERED: LITH150C PO (11:21)
[2020-04-30 11:55] VITALS: BP_SYST 113
[2020-04-30] MEDS ORDERED: ACETAMINOPHEN 325 MG TABLET PO PRN (12:30)
[2020-04-30] MEDS ORDERED: MORPHINE 4 MG/ML INJ. SYRINGE IVP PRN (12:30)
[2020-04-30] MEDS ORDERED: MORPHINE 2 MG/ML INJ. SYRINGE IVP PRN (12:30)
[2020-04-30] MEDS ORDERED: HYDROcodone/ACETAMIN 10-325 MG TAB PO PRN (12:30)
[2020-04-30] MEDS ORDERED: HYDROcodone/ACETAMIN 5-325 MG TAB (NORCO/ VICODIN) PO PRN (12:30)
[2020-04-30] MEDS ORDERED: FOLIC ACID 1 MG, THIAMINE HCL 100 MG, MAGNESIUM SULFATE 1 GM, MVI 10 ML in NACL 0.9% 1,... IV SCH (12:30)
[2020-04-30] MEDS: LORazepam 2 MG/ML VIAL IVP PRN ×2 (12:36→21:28)
[2020-04-30] MEDS: D5/0.45 NS 1,000 ML IV SCH ×2 (12:36→20:39)
[2020-04-30 12:47] VITALS: BP_SYST 113
[2020-04-30] MEDS: FOLIC ACID 1 MG, MVI 10 ML in NACL 0.9% 1,000 ML IV SCH (14:57)
[2020-04-30] MEDS: THIAMINE HCL 100 MG, MAGNESIUM SULFATE 1 GM in NS 100 ML IV SCH (14:57)
[2020-04-30] MEDS: chlordiazePOXIDE HCL 25 MG CAPSULE PO SCH ×2 (14:57→20:35)
[2020-04-30 16:15] VITALS: BP_SYST 114
[2020-04-30 19:45] VITALS: BP_SYST 145
[2020-04-30] MEDS: ONDANSETRON HCL 4 MG/2 ML VIAL IVP PRN (21:26)
[2020-05-01] VITALS: BP_SYST 145
[2020-05-01] MEDS: LORazepam 2 MG/ML VIAL IVP PRN ×5 (01:29→22:42)
[2020-05-01] MEDS: ONDANSETRON HCL 4 MG/2 ML VIAL IVP PRN ×3 (01:29→17:14)
[2020-05-01 06:49] LABS: BASOPHILS % (AUTO) 0.4 % (0.0-2.0); HEMATOCRIT 37.9 % (36-54); HEMOGLOBIN 12.9 g/dL (14.0-18.0); LYMPHOCYTES # (AUTO) 1.3 K/uL (1.0-5.5); LYMPHOCYTES % (AUTO) 19.9 % (20.5-51.5); MEAN CORPUSCULAR HEMOGLOBIN 32 pg (27-31); MEAN CORPUSCULAR HGB CONC 34 % (32-36); MEAN CORPUSCULAR VOLUME 93 fL (79.0-98.0); MONOCYTES # (AUTO) 0.6 K/uL (0.0-1.0); MONOCYTES % (AUTO) 10.3 % (1.7-9.3); NEUTROPHILS # (AUTO) 4.4 K/uL (1.8-7.7); NEUTROPHILS % (AUTO) 69.4 % (40.0-70.0); PLATELET COUNT (AUTO) 97 K/uL (130-430); RED BLOOD CELL COUNT(AUTO) 4.08 MIL/uL (4.2-6.2); RED CELL DISTRIBUTION WIDTH 16.6 % (9.0-15.0); WHITE BLOOD COUNT (AUTO) 6.3 K/uL (4.8-10.8)
[2020-05-01 06:59] LABS: ALANINE AMINOTRANSFERASE 96 U/L (12-78); ALBUMIN 3.9 g/dL (3.4-4.8); ANION GAP 12 (5-15); ASPARTATE AMINOTRANSFERASE 152 U/L (10-37); CALCIUM 8.5 mg/dL (8.4-11.0); CHLORIDE 99 mmol/L (98-107); CREATININE 0.94 mg/dL (0.55-1.30); GLUCOSE 112 mg/dL (70-99); POTASSIUM 3.6 mmol/L (3.5-5.1); SODIUM SERUM 137 mmol/L (136-145); TOTAL BILIRUBIN 1.4 mg/dL (0.0-1.0); UREA NITROGEN, BLOOD 9 mg/dL (8-21)
[2020-05-01 07:40] VITALS: BP_SYST 134
[2020-05-01 07:51] LABS: GFR AFRICAN AMERICAN 109 mL/min (>90)
[2020-05-01] MEDS ORDERED: MULTIVITAMINS TAB 1 TABLET PO SCH (09:00)
[2020-05-01] MEDS ORDERED: FOLIC ACID 1 MG TABLET PO SCH (09:00)
[2020-05-01] MEDS ORDERED: THIAMINE HCL 100 MG TABLET PO SCH (09:00)
[2020-05-01] MEDS: D5/0.45 NS 1,000 ML IV SCH (09:14)
[2020-05-01] MEDS: chlordiazePOXIDE HCL 25 MG CAPSULE PO SCH ×3 (09:15→21:21)
[2020-05-01 12:00] VITALS: BP_SYST 136
[2020-05-01] MEDS: THIAMINE HCL 100 MG, MAGNESIUM SULFATE 1 GM in NS 100 ML IV SCH (12:51)
[2020-05-01] MEDS: FOLIC ACID 1 MG, MVI 10 ML in NACL 0.9% 1,000 ML IV SCH (12:51)
[2020-05-01 16:43] VITALS: BP_SYST 130
[2020-05-01 19:00] VITALS: BP_SYST 136
[2020-05-01 20:00] VITALS: BP_SYST 136
[2020-05-01] MEDS: NORMAL SALINE 5 ML DISP.SYRIN IVF SCH (21:22)
[2020-05-02] VITALS: BP_SYST 149
[2020-05-02] MEDS: LORazepam 2 MG/ML VIAL IVP PRN ×4 (06:03→18:44)
[2020-05-02] MEDS: ONDANSETRON HCL 4 MG/2 ML VIAL IVP PRN (06:04)
[2020-05-02] MEDS: NORMAL SALINE 5 ML DISP.SYRIN IVF SCH ×2 (06:08→14:38)
[2020-05-02 06:32] LABS: BASOPHILS % (AUTO) 0.6 % (0.0-2.0); EOSINOPHILS % (AUTO) 0.1 % (0.0-4.0); HEMOGLOBIN 13.2 g/dL (14.0-18.0); LYMPHOCYTES % (AUTO) 34.7 % (20.5-51.5); MEAN CORPUSCULAR HEMOGLOBIN 31 pg (27-31); MEAN CORPUSCULAR HGB CONC 34 % (32-36); MEAN CORPUSCULAR VOLUME 93 fL (79.0-98.0); MONOCYTES # (AUTO) 0.3 K/uL (0.0-1.0); NEUTROPHILS # (AUTO) 1.5 K/uL (1.8-7.7); NEUTROPHILS % (AUTO) 53.6 % (40.0-70.0); PLATELET COUNT (AUTO) 69 K/uL (130-430); RED BLOOD CELL COUNT(AUTO) 4.19 MIL/uL (4.2-6.2); WHITE BLOOD COUNT (AUTO) 2.8 K/uL (4.8-10.8)
[2020-05-02 07:22] LABS: ALBUMIN 3.5 g/dL (3.4-4.8); CALCIUM 8.8 mg/dL (8.4-11.0); CREATININE 0.7 mg/dL (0.55-1.30); POTASSIUM 3.7 mmol/L (3.5-5.1); TOTAL BILIRUBIN 1.3 mg/dL (0.0-1.0)
[2020-05-02 08:00] VITALS: BP_SYST 114
[2020-05-02] MEDS: chlordiazePOXIDE HCL 25 MG CAPSULE PO SCH ×2 (09:11→15:42)
[2020-05-02 12:00] VITALS: BP_SYST 127
[2020-05-02 13:48] LABS: HEPATITIS A AB, IgM Negative (Negative); HEPATITIS B CORE AB, IgM Negative (Negative); HEPATITIS B SURFACE AG Negative (Negative)
[2020-05-02 16:00] VITALS: BP_SYST 123
[2020-05-02] MEDS ORDERED: Multivitamins Tab PO (17:19)
[2020-05-02] MEDS ORDERED: LORA2TAB95 PO (17:19)
[2020-05-02] MEDS ORDERED: FOLI-43 PO (17:19)
[2020-05-02] MEDS ORDERED: Thiamine Hcl PO (17:19)
[2020-05-02] MEDS ORDERED: LIB25 PO (17:19)
[2020-05-02 18:09] VITALS: BP_SYST 123
== END 2020-05-02 18:50 | disposition home or self-care (01) | DRG 243 ==
LOC: SED 06:56 → STU 11:20 → SMU 05-01 16:06
PROVIDERS: ADMIT Preventive Medicine Preventive Medicine/Occupational Environmental Medicine; ATTEND Preventive Medicine Preventive Medicine/Occupational Environmental Medicine
DX: K21.9 Gastro-esophageal reflux disease without esophagitis (principal); D61.818 Other pancytopenia; E87.2 Acidosis; E83.51 Hypocalcemia; E87.1 Hypo-osmolality and hyponatremia; K70.10 Alcoholic hepatitis without ascites; K70.30 Alcoholic cirrhosis of liver without ascites; F15.10 Other stimulant abuse, uncomplicated; J44.9 Chronic obstructive pulmonary disease, unspecified; R07.89 Other chest pain; F41.9 Anxiety disorder, unspecified; F10.239 Alcohol dependence with withdrawal, unspecified; K29.20 Alcoholic gastritis without bleeding; K20.9 Esophagitis, unspecified; K62.5 Hemorrhage of anus and rectum
CPT/HCPCS: 36415; 71045; 76700-TC; 80053; 80074; 80307; 81000-TC; 82150-TC; 82550-TC; 83605; 83690-TC; 83880; 84484; 85007; 85025; 85027; 85610-TC; 85730-TC; 87040-TC; 93005; 93306; 96360; 99285; G0378; G0482; J2060; J2270; J2405; J3411; J3475; J3490; J7030

== ENCOUNTER 2020-07-16 12:25 | Inpatient (IN) | payer BC, MEDICAID, OTHER ==
[~2020-07-16] VITALS: Ht 165.1 cm; Wt 79.4 kg
[~2020-07-16 12:25] MED LIST: FOLI-43 PO; LIB25 PO; LITH150C PO; LORA2TAB95 PO; Multivitamins Tab PO; Thiamine Hcl PO
[2020-07-16 12:32] VITALS: BP_SYST 111
--- NOTE | 2020-07-16 12:47 | NUR ---
Patient to ER bed 4 to gown for evaluation. Side rails up. Report given to Benjie OR.
--- NOTE | 2020-07-16 12:54 | NUR ---
ER Dr. Martínez at bedside examining patient.
[2020-07-16] MEDS ORDERED: PANTOPRAZOLE SODIUM 40 MG/VIAL (PROTONIX) IVP ONE ×2 (13:00→15:15)
[2020-07-16] MEDS ORDERED: MVI 10 ML, THIAMINE HCL 100 MG, FOLIC ACID 1 MG, MAGNESIUM SULFATE 1 GM in NACL 0.9% 1,... IV ONE (13:00)
--- NOTE | 2020-07-16 13:02 | NUR ---
# 18 gauge angiocath placed to LEFT AC. Use of asceptic technique. Opsite placed over site. Blood return noted. Blood for lab drawn from site. Flushed with 10 cc of normal saline. No evidence of infiltration noted. Patient tolerated well.
[2020-07-16] MEDS ORDERED: THIAMINE HCL 100 MG, MAGNESIUM SULFATE 1 GM in NS 100 ML IV ONE (13:15)
[2020-07-16] MEDS ORDERED: FOLIC ACID 1 MG, MVI 10 ML in NACL 0.9% 1,000 ML IV ONE (13:15)
[2020-07-16 13:32] LABS: CALCIUM 9.4 mg/dL (8.4-11.0); CREATININE 0.85 mg/dL (0.55-1.30); POTASSIUM 3.6 mmol/L (3.5-5.1)
[2020-07-16 13:36] LABS: INR 1.1 (0.80-1.20); PROTHROMBIN TIME 10.8 SECS (9.5-12.5)
[2020-07-16 13:37] LABS: ALBUMIN 4.3 g/dL (3.4-4.8); TOTAL BILIRUBIN 2.1 mg/dL (0.0-1.0)
[2020-07-16 13:38] LABS: HEMATOCRIT 40.4 % (36-54); HEMOGLOBIN 13.2 g/dL (14.0-18.0); MEAN CORPUSCULAR HEMOGLOBIN 34 pg (27-31); MEAN CORPUSCULAR HGB CONC 33 % (32-36); MEAN CORPUSCULAR VOLUME 102 fL (79.0-98.0); PLATELET COUNT (AUTO) 73 K/uL (130-430); RED BLOOD CELL COUNT(AUTO) 3.94 MIL/uL (4.2-6.2); RED CELL DISTRIBUTION WIDTH 18.5 % (9.0-15.0); WHITE BLOOD COUNT (AUTO) 2.7 K/uL (4.8-10.8)
--- NOTE | 2020-07-16 13:44 | NUR ---
Pt asleep in [facility] c/o at this time.
[2020-07-16 14:00] LABS: BAND % (MANUAL) 5 % (0-6); BASOPHILS % (MANUAL) 0 % (0-2); EOSINOPHILS % (MANUAL) 0 % (0-7); LYMPHOCYTES % (MANUAL) 46 % (20-46); MONOCYTES % (MANUAL) 17 % (0-11)
[2020-07-16] MEDS ORDERED: LORazepam 2 MG/ML VIAL IVP ONE ×2 (14:45→18:45)
[2020-07-16] MEDS ORDERED: chlordiazePOXIDE HCL 25 MG CAPSULE PO ONE (15:15)
--- NOTE | 2020-07-16 15:32 | NUR ---
Patient will be admitted to care of [facility]. Admitted to TELE unit. Will go to room 104. Belongings list completed. Complete and up to date summary report printed. SBAR report to be given at bedside with opportunity for questions.
--- NOTE | 2020-07-16 15:55 | NUR ---
ADMISSION NOTE Received patient from ER via kevin, received report from TJ RO. Patient admitted with diagnosis of ETOH INTOXICATION . Patient oriented to hospital routine, call light, toileting and safety-patient verbalized understanding.
[2020-07-16 16:09] VITALS: BP_SYST 142
[2020-07-16 16:20] VITALS: BP_SYST 142
--- NOTE | 2020-07-16 18:30 | NUR ---
PAGED DR LANG FOR ATIVAN AND LIBRIUM.
--- NOTE | 2020-07-16 18:39 | NUR ---
PT AMBULATED TO BATHROOM. PT HAD EMESIS IN THE REST ROOM, PROVIDED EMESIS BAG.
--- NOTE | 2020-07-16 18:44 | NUR ---
HIGH ALERT NOTE: Called Dr. LANG back at [phone] identified within the medical roster to verify physician authenticity.
[2020-07-16] MEDS ORDERED: cloNIDine HCL 0.2 MG TABLET PO PRN (19:15)
--- NOTE | 2020-07-16 19:15 | NUR ---
OPENING NOTE BEDSIDE REPORT RECEIVED FROM DAYSHIFT NURSE. PATIENT RECEIVED LYING IN BED, AWAKE, DENIES PAIN. NO S/S OF ACUTE DISTRESS. BREATHING EVEN AND UNLABORED. IVF INFUSING, IV SITE IS PATENT, NO SIGNS OF INFILTRATION OR INFECTION NOTED. CALL LIGHT WITH PATIENT, PATIENT DEMONSTRATED BACK PROPER USE. BED IS LOCKED AND AT LOWEST POSITION. WILL CONTINUE TO MONITOR.
[2020-07-16] MEDS ORDERED: DIPHENHYDRAMINE INJ 50 MG/ML VIAL IM PRN (19:30)
[2020-07-16] MEDS ORDERED: HALOPERIDOL LACTATE 5 MG/ML VIAL IVP PRN (19:30)
[2020-07-16 20:00] VITALS: BP_SYST 125
[2020-07-16] MEDS: chlordiazePOXIDE HCL 25 MG CAPSULE PO SCH ×2 (20:17→21:00)
[2020-07-16] MEDS: THIAMINE HCL 100 MG TABLET PO SCH (20:17)
[2020-07-16] MEDS: PANTOPRAZOLE SODIUM 40 MG in NS 50 ML IV SCH (20:18)
[2020-07-16] MEDS: NACL 0.9% 1,000 ML IV SCH (20:22)
[2020-07-16] MEDS ORDERED: PANTOPRAZOLE SODIUM 40 MG/VIAL (PROTONIX) ONE (20:28)
--- NOTE | 2020-07-16 21:00 | NUR ---
ROUNDS/VOIDED PATIENT ASSISTED TO BATHROOM AND BACK TO BED. PATIENT TOLERATED WELL, GAIT STEADY. IVF INFUSING WELL. CALL LIGHT WITH PATIENT. WILL CONTINUE TO MONITOR.
[2020-07-16] MEDS: LORazepam 2 MG/ML VIAL IVP PRN (21:12)
--- NOTE | 2020-07-16 23:00 | NUR ---
ROUNDS PATIENT IN BED SLEEPING AT THIS TIME. NO S/S OF ACUTE DISTRESS NOTED. BREATHING EVEN AND UNLABORED. CALL LIGHT WITH PATIENT. WILL CONTINUE TO MONITOR.
--- NOTE | 2020-07-17 00:50 | NUR ---
CONSULTATION PAGED/CALLED Reason for Consultation: BLOOD IN STOOL Person Who was Notified: PRASAD Consulting Physician: DR. TEJEDA Instructional Media Services Technician Specialty: GI Ordering Physician: RICKEY
--- NOTE | 2020-07-17 01:00 | NUR ---
ROUNDS PATIENT IN BED, ASLEEP. NO SIGNS OF DISCOMFORT NOTED. CHEST RISE AND FALL EVEN BILATERALLY. IVF INFUSING WELL. CALL LIGHT WITH PATIENT. WILL CONTINUE TO MONITOR.
[2020-07-17] MEDS: PANTOPRAZOLE SODIUM 40 MG in NS 50 ML IV SCH ×5 (01:05→19:52)
[2020-07-17] MEDS: LORazepam 2 MG/ML VIAL IVP PRN ×5 (01:05→19:52)
[2020-07-17] MEDS ORDERED: PANTOPRAZOLE SODIUM 40 MG/VIAL (PROTONIX) ONE ×2 (01:12→05:14)
[2020-07-17 01:46] VITALS: BP_SYST 95
--- NOTE | 2020-07-17 02:52 | NUR ---
CONSULTATION PAGED/CALLED Reason for Consultation: BIPOLAR Person Who was Notified: PRASAD Consulting Physician: MANDO . DOCTOR MACKEY IS PARKING OFFICER Accountant Manager Specialty: Ordering Physician: RICKEY
--- NOTE | 2020-07-17 03:00 | NUR ---
ROUNDS PATIENT IN BED, SLEEPING COMFORTABLY, NO S/S OF ACUTE DISTRESS NOTED. BREATHING EVEN AND UNLABORED. CALL LIGHT WITH PATIENT. WILL CONTINUE TO MONITOR.
--- NOTE | 2020-07-17 05:00 | NUR ---
ROUNDS PATIENT IN BED, SLEEPING. NO SIGNS OF DISCOMFORT NOTED. CHEST RISE AND FALL EVEN BILATERALLY. IVF INFUSING WELL. BED ALARM ON. WILL CONTINUE TO MONITOR.
[2020-07-17] MEDS: NACL 0.9% 1,000 ML IV SCH ×2 (05:09→16:13)
--- NOTE | 2020-07-17 06:51 | NUR ---
CLOSING NOTE PATIENT IN BED, ASLEEP AT THIS TIME. NO S/S OF ACUTE DISTRESS NOTED. BREATHING EVEN AND UNLABORED. IVF INFUSING WELL, IV SITE PATENT, NO SIGNS OF INFILTRATION OR INFECTION NOTED. SEIZURE PADS ATTACHED TO SIDE RAILS. ALL NEEDS MET THROUGHOUT SHIFT. FALL AND SAFETY PRECAUTIONS MAINTAINED THROUGHOUT SHIFT. WILL CONTINUE TO MONITOR UNTIL PATIENT CARE IS ENDORSED TO ONCOMING DAYSHIFT NURSE.
[2020-07-17 07:49] VITALS: BP_SYST 135
[2020-07-17 08:05] LABS: ALBUMIN 3.6 g/dL (3.4-4.8); CALCIUM 8.6 mg/dL (8.4-11.0); CREATININE 0.72 mg/dL (0.55-1.30); TOTAL BILIRUBIN 2.8 mg/dL (0.0-1.0)
[2020-07-17 08:14] LABS: BASOPHILS % (AUTO) 2.2 % (0.0-2.0); EOSINOPHILS % (AUTO) 0.6 % (0.0-4.0); HEMATOCRIT 33.5 % (36-54); HEMOGLOBIN 11.3 g/dL (14.0-18.0); LYMPHOCYTES # (AUTO) 0.5 K/uL (1.0-5.5); LYMPHOCYTES % (AUTO) 24.2 % (20.5-51.5); MEAN CORPUSCULAR HEMOGLOBIN 35 pg (27-31); MEAN CORPUSCULAR HGB CONC 34 % (32-36); MEAN CORPUSCULAR VOLUME 103 fL (79.0-98.0); MONOCYTES # (AUTO) 0.3 K/uL (0.0-1.0); MONOCYTES % (AUTO) 15.7 % (1.7-9.3); NEUTROPHILS # (AUTO) 1.2 K/uL (1.8-7.7); PLATELET COUNT (AUTO) 54 K/uL (130-430); RED BLOOD CELL COUNT(AUTO) 3.26 MIL/uL (4.2-6.2); RED CELL DISTRIBUTION WIDTH 18.1 % (9.0-15.0); WHITE BLOOD COUNT (AUTO) 2.1 K/uL (4.8-10.8)
[2020-07-17 08:18] LABS: POTASSIUM 2.9 mmol/L (3.5-5.1)
[2020-07-17] MEDS: THIAMINE HCL 100 MG TABLET PO SCH (08:41)
[2020-07-17] MEDS: FOLIC ACID 1 MG TABLET PO SCH (08:41)
[2020-07-17] MEDS: chlordiazePOXIDE HCL 25 MG CAPSULE PO SCH ×4 (08:42→21:36)
[2020-07-17 08:49] LABS: NEUTROPHILS % (AUTO) 57.3 % (40.0-70.0)
--- NOTE | 2020-07-17 09:20 | NUR ---
HIGH ALERT NOTE: YOLA Called Dr. LANG back at [phone] identified within the medical roster to verify physician authenticity.
[2020-07-17] MEDS ORDERED: POTASSIUM CHLORIDE 20 MEQ TAB.PRT.SR PO ONE (09:30)
--- NOTE | 2020-07-17 10:54 | NUR ---
covid 19 sample taken from pt and sent to lab.
[2020-07-17 12:23] VITALS: BP_SYST 124
[2020-07-17 16:13] VITALS: BP_SYST 118
[2020-07-17] MEDS ORDERED: MAGNESIUM OXIDE 400 MG TABLET PO ONE (16:30)
--- NOTE | 2020-07-17 18:01 | NUR ---
CLOSING NOTES PT HAS BEEN STABLE THE WHOLE SHIFT, NO UNTOWARD INCIDENT. PT HAS EPISODES OF SHAKINESS, PT WAS GIVEN ATIVAN AND SCHEDULED LIBRIUM. SEEN BY DR LANG. NEW ORDERS GIVEN AND CARRIED OUT.
--- NOTE | 2020-07-17 19:15 | NUR ---
OPENING NOTE BEDSIDE REPORT RECEIVED FROM DAYSHIFT NURSE. PATIENT RECEIVED LYING IN BED, ASLEEP. NO S/S OF ACUTE DISTRESS NOTED. BREATHING EVEN AND UNLABORED. HOB RAISED. SEIZURE PADS ATTACHED ON SIDE RAILS. IVF INFUSING WELL, IV SITE PATENT, NO SIGNS OF INFILTRATION OR INFECTION NOTED. CALL LIGHT WITH PATIENT. BED ALARM ON. BED IS LOCKED AND AT LOWEST POSITION. WILL CONTINUE TO MONITOR.
[2020-07-17 20:00] VITALS: BP_SYST 136
--- NOTE | 2020-07-17 21:00 | NUR ---
ROUNDS PATIENT IN BED WATCHING TV, NO S/S OF ACUTE DISTRESS. PATIENT DENIES PAIN. BREATHING EVEN AND UNLABORED. ALL NEEDS MET AT THIS TIME. BED ALARM ON. CALL LIGHT WITH PATIENT. WILL CONTINUE TO MONITOR.
[2020-07-17] MEDS: POTASSIUM CHLORIDE 20 MEQ TAB.PRT.SR PO SCH (21:36)
[2020-07-17] MEDS: MAGNESIUM OXIDE 400 MG TABLET PO SCH (21:36)
--- NOTE | 2020-07-17 23:00 | NUR ---
ROUNDS PATIENT IN BED, ASLEEP. NO S/S OF ACUTE DISTRESS. CALL LIGHT WITH PATIENT. BED ALARM ON. WILL CONTINUE TO MONITOR.
[2020-07-18] VITALS: BP_SYST 129
[2020-07-18] MEDS: LORazepam 2 MG/ML VIAL IVP PRN ×3 (00:23→18:24)
[2020-07-18] MEDS: PANTOPRAZOLE SODIUM 40 MG in NS 50 ML IV SCH ×2 (00:23→05:22)
[2020-07-18] MEDS: NACL 0.9% 1,000 ML IV SCH ×3 (00:26→21:49)
--- NOTE | 2020-07-18 01:00 | NUR ---
ROUNDS PATIENT IN BED, SLEEPING COMFORTABLY. NPO SINCE MIDNIGHT. REMOVED ALL DRINKS ON BEDSIDE TABLE, NPO CONE PLACED. CALL LIGHT WITH PATIENT. BED ALARM ON. WILL CONTINUE TO MONITOR.
--- NOTE | 2020-07-18 03:00 | NUR ---
ROUNDS PATIENT IN BED SLEEPING COMFORTABLY. NO S/S OF ACUTE DISTRESS. BREATHING EVEN AND UNLABORED. CALL LIGHT WITH PATIENT. BED ALARM ON. WILL CONTINUE TO MONITOR.
--- NOTE | 2020-07-18 05:00 | NUR ---
ROUNDS PATIENT IN BED, SLEEPING AT THIS TIME. NO SIGNS OF DISCOMFORT NOTED. BED ALARM ON. WILL CONTINUE TO MONITOR.
[2020-07-18 06:26] LABS: BASOPHILS % (AUTO) 1.8 % (0.0-2.0); EOSINOPHILS % (AUTO) 1.4 % (0.0-4.0); HEMATOCRIT 34.2 % (36-54); HEMOGLOBIN 11.4 g/dL (14.0-18.0); LYMPHOCYTES # (AUTO) 0.6 K/uL (1.0-5.5); LYMPHOCYTES % (AUTO) 29.5 % (20.5-51.5); MEAN CORPUSCULAR HEMOGLOBIN 35 pg (27-31); MEAN CORPUSCULAR HGB CONC 33 % (32-36); MEAN CORPUSCULAR VOLUME 103 fL (79.0-98.0); MONOCYTES # (AUTO) 0.3 K/uL (0.0-1.0); MONOCYTES % (AUTO) 13.4 % (1.7-9.3); NEUTROPHILS # (AUTO) 1.1 K/uL (1.8-7.7); NEUTROPHILS % (AUTO) 53.9 % (40.0-70.0); PLATELET COUNT (AUTO) 59 K/uL (130-430); RED BLOOD CELL COUNT(AUTO) 3.31 MIL/uL (4.2-6.2); RED CELL DISTRIBUTION WIDTH 18.5 % (9.0-15.0); WHITE BLOOD COUNT (AUTO) 2.1 K/uL (4.8-10.8)
--- NOTE | 2020-07-18 06:56 | NUR ---
CLOSING NOTE PATIENT IN BED SLEEPING AT THIS TIME. NO S/S OF ACUTE DISTRESS NOTED. BREATHING EVEN AND UNLABORED. IVF INFUSING WELL, IV SITE PATENT, NO SIGNS OF INFILTRATION OR INFECTION NOTED. SEIZURE PADS ATTACHED TO SIDE RAILS. ALL NEEDS MET THROUGHOUT SHIFT. FALL, SAFETY PRECAUTIONS MAINTAINED. WILL CONTINUE TO MONITOR.
[2020-07-18 07:16] LABS: INR 1.1 (0.80-1.20)
[2020-07-18 07:25] LABS: ALBUMIN 3.5 g/dL (3.4-4.8); CALCIUM 9.1 mg/dL (8.4-11.0); CREATININE 0.64 mg/dL (0.55-1.30); POTASSIUM 3.5 mmol/L (3.5-5.1)
[2020-07-18 08:00] VITALS: BP_SYST 137
--- NOTE | 2020-07-18 08:00 | NUR ---
initial notes rec patient asleep but arousable to stimuli. ivf infusing well on the l forearm. no infiltration noted. resp easy and unlabored. no osb noted.bed to the lowest position and advertising operations coordinator ails up and locked. call light wthin reached and knows when to call for assistance. npo maintained for gi procedure today.
[2020-07-18] MEDS: FOLIC ACID 1 MG TABLET PO SCH (09:00)
[2020-07-18] MEDS: THIAMINE HCL 100 MG TABLET PO SCH (09:00)
[2020-07-18] MEDS: POTASSIUM CHLORIDE 20 MEQ TAB.PRT.SR PO SCH ×2 (09:00→21:48)
[2020-07-18] MEDS: MAGNESIUM OXIDE 400 MG TABLET PO SCH ×2 (09:00→21:48)
[2020-07-18] MEDS: chlordiazePOXIDE HCL 25 MG CAPSULE PO SCH ×4 (09:00→21:48)
--- NOTE | 2020-07-18 10:00 | NUR ---
rounds continue to sleep soundly. wakes up patient at intervals. no sob noted.call light within reached.
[2020-07-18] MEDS ORDERED: MEPERIDINE HCL/PF 100 MG/ML AMP ONE (12:06)
[2020-07-18] MEDS ORDERED: BENZOCAINE 20% 0.5mL UD SPRAY MM ONE (12:06)
[2020-07-18] MEDS: MIDAZOLAM HCL 5 MG/5 ML VIAL ONE ×2 (12:08→12:11)
--- NOTE | 2020-07-18 12:15 | NUR ---
rounds pt was pickup to gi lab via bed. no sob noted. voided using the urinal at bedside prior to gong to gi lab to large amount of dark urine. no sob noted.
--- NOTE | 2020-07-18 12:28 | NUR ---
Dietitian Recommendations *Continue NPO per MD *Advance diet when medically appropriate. (GI Soft) Please see Nutritional Assessment for details. DARIUS, KEN
--- NOTE | 2020-07-18 13:38 | NUR ---
SS NOTES: ONLINE EDUCATION MANAGER attempted to meet with patient 2x today, pt asleep and difficult to arouse.
[2020-07-18 20:00] VITALS: BP_SYST 127
[2020-07-18] MEDS: SUCRALFATE 1 GM TABLET PO SCH (21:00)
[2020-07-18] MEDS ORDERED: SUCRALFATE 1 GM/10 ML UDC GT SCH (21:00)
[2020-07-18] MEDS: PANTOPRAZOLE SODIUM 40 MG TAB PO SCH (21:48)
[2020-07-19] MEDS: LORazepam 2 MG/ML VIAL IVP PRN ×3 (00:30→14:08)
[2020-07-19 04:00] VITALS: BP_SYST 130
[2020-07-19 06:22] LABS: BASOPHILS % (AUTO) 1.4 % (0.0-2.0); EOSINOPHILS % (AUTO) 1.4 % (0.0-4.0); HEMATOCRIT 33.8 % (36-54); HEMOGLOBIN 11.3 g/dL (14.0-18.0); LYMPHOCYTES # (AUTO) 0.6 K/uL (1.0-5.5); LYMPHOCYTES % (AUTO) 16.6 % (20.5-51.5); MEAN CORPUSCULAR HEMOGLOBIN 35 pg (27-31); MEAN CORPUSCULAR HGB CONC 33 % (32-36); MEAN CORPUSCULAR VOLUME 104 fL (79.0-98.0); MONOCYTES # (AUTO) 0.5 K/uL (0.0-1.0); MONOCYTES % (AUTO) 13.4 % (1.7-9.3); NEUTROPHILS # (AUTO) 2.3 K/uL (1.8-7.7); NEUTROPHILS % (AUTO) 67.2 % (40.0-70.0); PLATELET COUNT (AUTO) 77 K/uL (130-430); RED BLOOD CELL COUNT(AUTO) 3.24 MIL/uL (4.2-6.2); RED CELL DISTRIBUTION WIDTH 18.2 % (9.0-15.0); WHITE BLOOD COUNT (AUTO) 3.4 K/uL (4.8-10.8)
[2020-07-19] MEDS: NACL 0.9% 1,000 ML IV SCH ×2 (06:45→17:12)
[2020-07-19] MEDS: SUCRALFATE 1 GM TABLET PO SCH ×3 (06:45→17:06)
[2020-07-19 06:47] LABS: ALBUMIN 3.4 g/dL (3.4-4.8); CREATININE 0.83 mg/dL (0.55-1.30); POTASSIUM 3.5 mmol/L (3.5-5.1); TOTAL BILIRUBIN 2.7 mg/dL (0.0-1.0)
--- NOTE | 2020-07-19 06:50 | NUR ---
CLOSING NOTE PATIENT AWAKE IN BED, ATTEMPTING TO GET OUT OF BED, PULLED IV AND IV IS NOW COMPROMISED, NOT FLUSHING. WILL ENDORSE TO AM SHIFT TO REPLACE IV SITE. PATIENT OTHERWISE IN STABLE CONDITION. O COMPLAINTS OF PAIN AT THIS TIME. ALL PATIENT CARE NEEDS MET THROUGHOUT SHIFT. BED REMAINS LOCKED IN LOWEST POSITION WITH CALL LIGHT IN REACH.
[2020-07-19 08:00] VITALS: BP_SYST 116
--- NOTE | 2020-07-19 08:00 | NUR ---
Note Pt resting in bed, IV was redressed and readjusted - IVF's now infusing well through left forearm IV site. No SOB/resp distress or pain discomfort noted at this time. Tele unit attached and intact at this time. Pt has his breakfast tray on bedside table next to him. No needs noted at this time. Call light within reach.
[2020-07-19] MEDS: FOLIC ACID 1 MG TABLET PO SCH (08:26)
[2020-07-19] MEDS: THIAMINE HCL 100 MG TABLET PO SCH (08:26)
[2020-07-19] MEDS: MAGNESIUM OXIDE 400 MG TABLET PO SCH (08:26)
[2020-07-19] MEDS: PANTOPRAZOLE SODIUM 40 MG TAB PO SCH (08:26)
[2020-07-19] MEDS: POTASSIUM CHLORIDE 20 MEQ TAB.PRT.SR PO SCH (08:26)
[2020-07-19] MEDS: chlordiazePOXIDE HCL 25 MG CAPSULE PO SCH ×3 (08:26→17:06)
[2020-07-19 10:06] LABS: AFP, TUMOR MARKER 2.5 ng/mL (0.0-8.3)
--- NOTE | 2020-07-19 11:00 | NUR ---
Note Pt resting in bed. Pt received Ativan 1mg IVP at 0830am on request. Pt has bed alarm on and bed in low position all shift. Pt instructed to call for standby assistance when getting OOB to restroom. No needs noted at this time. Call light within reach.
[2020-07-19 11:27] LABS: HEPATITIS A AB, IgM Negative (Negative); HEPATITIS B CORE AB, IgM Negative (Negative); HEPATITIS B SURFACE AG Negative (Negative)
[2020-07-19 11:28] VITALS: BP_SYST 123
--- NOTE | 2020-07-19 13:45 | NUR ---
Note Pt resting in bed, next to nurses' station. No needs noted at this time. No shakiness/agitation/restlessness noted at this time. Pt's bed alarm on all shift and bed in low position. Call light within reach.
--- NOTE | 2020-07-19 14:55 | NUR ---
NOTE DR GILMORE ON THE FLOOR AT 1330 TO ASSESS PT AND EVALUATE PT FOR ORDERS.
[2020-07-19 15:31] VITALS: BP_SYST 117
--- NOTE | 2020-07-19 15:45 | NUR ---
NOTE Dr Cox at pt's bedside assessing pt and instructing pt he needs to go from the hospital to Detox center. Pt states his mother and sister have made arrangements for him to be admitted to Detox center in [place]. Dr Cox spoke to Yvonne (Webbing Tacker) who will be verifying that pt's mother and sister have made arrangements for pt to be admitted to Detox center in [place] and will then notify RN and Dr Cox so pt may be discharged. Tele unit was dc'd by pt and returned to telemetry monitor by RN at this time. Pt also requested that his IVF's be saline locked, so he can wear his street clothes. Dr Cox was notified.
--- NOTE | 2020-07-19 15:52 | NUR ---
Social Service Note: DON spoke with pt at bedside; pt states that his mother and sister have made arrangements for pt to go to [facility] in [facility] for detox/treatment. DON placed call to pt's sister, Abigail ([phone]); Abigail confirmed that pt is being set up to go to [facility]. Abigail states that [facility] ([phone]-[facility]) needs documentation of medical clearance and discharge. DON placed call to [facility] and she provided a fax number for [facility] ([phone]) DON has faxed pt's information to [facility]. Bhargavi states that she will call back once pt's medical information has been reviewed by the physician for [facility]. DON updated pt's nurse. Addendum: 07/19/20 at 1631 by Yvonne Stewart LCSW DON received call from Bhargavi who states that pt is cleared to be accepted to [facility] today. Bhargavi will call pt's sister to arrange admission to facility.
--- NOTE | 2020-07-19 16:40 | NUR ---
NOTE Received a call from [facility] in [place] and from pt's sister (Abigail) - pt will be discharged to detox center [facility]. Pt's sister will oyster picker pt at 1830. Pt was notified.
[2020-07-19 16:53] VITALS: BP_SYST 96
--- NOTE | 2020-07-19 17:25 | NUR ---
Note Pt had shower and is back in room with gown. Pt on the phone with friends and family all shift. Pt packed all his belongings and checked side table/drawers for belongings. Pt's left IV was dc'd - site benign and no swelling/redness/drainage or tenderness noted at site, before pt showered.
--- NOTE | 2020-07-19 18:15 | NUR ---
Note Pt sat on side of bed and ate his dinner. No SOB/resp distress or pain/discomfort was noted at this time. Pt has no shakiness/weakness/restlessness. Pt was checked on q1' and PRN all shift. Pt was given discharge instructions and questions/concerns were answered at this time. Pt waiting for family to pick him up at 1830. Pt stable. Call light within reach.
--- NOTE | 2020-07-19 18:45 | NUR ---
Note Pt off the floor via wheelchair with all his belongings and discharge paperwork. Pt stable.
== END 2020-07-19 18:50 | disposition home or self-care (01) | DRG 432 ==
LOC: SED 12:25 → STU 15:05 → SMU 07-19 16:00
PROVIDERS: ADMIT Internal Medicine; ATTEND Internal Medicine
PROC: 0DB68ZX Excision of Stomach, Via Natural or Artificial Opening Endoscopic, Diagnostic (ICD-10-PCS; principal; 2020-07-18 14:00)
DX: K70.10 Alcoholic hepatitis without ascites (principal); K29.71 Gastritis, unspecified, with bleeding; D61.818 Other pancytopenia; K31.89 Other diseases of stomach and duodenum; D69.6 Thrombocytopenia, unspecified; D72.819 Decreased white blood cell count, unspecified; F10.229 Alcohol dependence with intoxication, unspecified; F31.9 Bipolar disorder, unspecified
CPT/HCPCS: 36415; 43239; 71045; 76700-TC; 80053; 80074; 82105; 82272; 83690-TC; 83735-TC; 85007; 85025; 85027; 85610-TC; 85730-TC; 86886; 86900; 86901; 87081; 88305; 88312; 88313; 93005; 96365; 96368; 96375; 96376; 99285; C9113; G0378; G0482; J2060; J2175; J2250; J3411; J3475; J3490; J7030; U0003-CS